=== PATIENT | female | born 1955 | race Caucasian/White ===

== ENCOUNTER 2025-05-23 10:20 | Emergency (ER) | payer MEDICARE, OTHER, SELFPAY ==
[2025-05-23 10:22] VITALS: BP 153/86
[2025-05-23 10:54] LABS: % Eosinophils 3.1 % (0-6); % Immature Granulocytes 0.3 % (0-0.5); % Lymphocytes 17.7 % (20.5-51.1); % Monocytes 9.9 % (1.7-9.3); Absolute Basophils 0.1 10^3/uL (0-0.2); Absolute Eosinophils 0.3 10^3/uL (0-0.7); Absolute Lymphocytes 1.8 10^3/uL (1.2-3.4); Absolute Neutrophils 7.1 10^3/uL (1.4-6.5); Hematocrit 36.9 % (37.0-47.0); Hemoglobin 11.7 g/dL (12.0-16.0); Mean Corp Hgb Conc. 31.7 g/dL (33.0-37.0); Mean Corpuscular Hgb 26.3 pg (27.0-31.0); Mean Corpuscular Volume 82.9 fL (81.0-99.0); Mean Platelet Volume 8.9 fL (7.4-10.4); Nucleated Red Blood Cells % 0 %; Platelet Count 451 10^3/uL (130-400); Red Blood Cell Count 4.45 10^6/uL (4.20-5.40); Red Cell Dist. Width 20.9 % (11.5-14.5); White Blood Cell Count 10.4 10^3/uL (4.8-10.8)
[2025-05-23 11:02] LABS: ALT (SGPT) 27 U/L (0-35); AST (SGOT) 34 U/L (14-36); Albumin 3.9 g/dl (3.5-5.0); Alkaline Phosphatase 119 U/L (38-126); Blood Urea Nitrogen 17 mg/dl (7-17); Calcium 9.4 mg/dl (8.4-10.2); Carbon Dioxide 24 mmol/L (22-30); Chloride 109 mmol/L (98-107); Glucose 105 mg/dl (70-99); Potassium 5.3 mmol/L (3.5-5.1); Sodium 138 mmol/L (135-145); Total Bilirubin 0.7 mg/dl (0.2-1.3); Total Protein 6.6 g/dl (6.3-8.2); eGFR > 60.00
--- NOTE | 2025-05-23 11:38 | ED.GENMED ---
History of Present Illness
General
Chief Complaint: Skin Problem
Source: patient
Exam Limitations: none
Time Seen by Provider: 05/23/25 11:28
Nursing documentation reviewed up to this point in time: agreed with
History of Present Illness
History of Present Illness:
Patient is a 70-year-old female presents to the ER for evaluation. Patient reports she fell on her knee May 05 and since then has a progressive swelling bruising to right lower leg. She was seen by her family doctor and has been being treated for
cellulitis. She is on day 5 of Keflex. She is on Eliquis. She does complain of soreness to the area but was concerned about the swelling. She is able to walk and bear weight. She denies any numbness tingling to lower extremity/foot/toes.
Past History
Past History
ED Past Medical History: HTN and Other (Peptic ulcer)
ED Past Surgical History: Other (recent ERCP)
Social History
Living: with family
Review of Systems
Review of Systems
Allergies reviewed?: Yes
Other source history: family
All Other Systems: ROS reviewed and negative except as documented in HPI and ROS
Phy Exam
General Physical Exam
General Presentation: no apparent distress
General age: appears stated age
General Skin: warm and dry
General Habitus: normal
General Mental: alert
General Hydration: appears well hydrated
Neurological Exam
Neurological Exam: alert and oriented x3
Musculoskeletal Exam
Musculoskeletal Exam: other (Right lower extremity with obvious hematoma and ecchymosis to right anterior lateral lower leg compartments are soft strong distal pulses)
Skin Exam
Skin Exam: normal color and warm/dry
Psychiatric Exam
Psychiatric Exam: normal mood/affect
Course
Orders/Labs/Results
Orders:
Orders
05/23/25 10:37
Complete Blood Count/With Diff Urgent
Comprehensive Metabolic Panel Urgent
Blood Culture Urgent
JEISON Source: Blood/Venous
Specimen Description:
05/23/25 12:04
Venous Doppler Lwr Ext Rt [US Periph Venous LOWER Ext RT] Urgent
Comment:
Reason For Exam: swelling hematoma s/p trauma
Abnormal Lab Results
05/23/25
10:37
Hgb 11.7 L g/dL
(12.0-16.0)
Hct 36.9 L %
(37.0-47.0)
MCH 26.3 L pg
(27.0-31.0)
MCHC 31.7 L g/dL
(33.0-37.0)
RDW 20.9 H %
(11.5-14.5)
Plt Count 451 H 10^3/uL
(130-400)
Absolute Neuts (auto) 7.1 H 10^3/uL
(1.4-6.5)
Absolute Monos (auto) 1.0 H 10^3/uL
(0.1-0.6)
Lymphocytes % 17.7 L %
(20.5-51.1)
Monocytes % 9.9 H %
(1.7-9.3)
Potassium 5.3 H mmol/L
(3.5-5.1)
Chloride 109 H mmol/L
(98-107)
Glucose 105 H mg/dl
(70-99)
05/23/25 10:37
05/23/25 10:37
Vital Signs
Initial and Last Documented VS:
Initial Vital Signs
Temp Pulse Resp BP Pulse Ox
97.8 F 92 20 153/86 98
05/23/25 10:22 05/23/25 10:22 05/23/25 10:22 05/23/25 10:22 05/23/25 10:22
Last Documented Vital Signs
Temp Pulse Resp BP Pulse Ox
97.8 F 87 20 157/91 98
05/23/25 10:22 05/23/25 14:07 05/23/25 10:22 05/23/25 14:07 05/23/25 14:07
MDM/Problems Addressed
Differential Diagnosis Includes:
Not limited to hematoma contusion less likely DVT less likely cellulitis less likely compartment syndrome
MDM/Problems Addressed:
Symptoms are consistent with hematoma on exam patient is on Eliquis no evidence of infection patient denies any fevers is afebrile normal white count has been on Keflex however exam and clinical findings were consistent with hematoma no concerning
symptoms consistent with compartment syndrome.
Patient has been using ice and has not been using any compression.
Discussed with patient we will can switch to warm moist compresses/heat will use compression throughout the day with ambulation discussed the importance of increasing elevation and close outpatient follow-up.
Chronic conditions affecting care:
On Eliquis for history of PE
*Radiology
Radiology exam reviewed: radiology read reviewed
*Pulse Oximetry
SaO2: 98
Oxygen Mode of Delivery: Room air
Patient hypoxic: no
*Critical Care Note
Total Time (30-74mins, 75-104mins- exclusive of procedures): Not Applicable
ED Attending Note
-
Portions of this chart may have been created with voice recognition software.� Occasional wrong word or��sound alike� substitutions may have occurred due to the inherent limitations of voice recognition software.
Discharge Plan
Departure
Patient Disposition: Home (Routine Discharge)
Date of Disposition: 05/23/25
Time of Disposition: 15:10
Patient with high blood pressure during this ER visit?: Yes
Condition: Fair
Covid-19: Not Applicable
Discharge Problem:
Hematoma
Instructions: Hematoma
Prescriptions:
No Action
anastrozole 1 mg Tablet
1 mg PO DAILY
cetirizine 10 mg Tablet
10 mg PO HS
cephalexin 250 mg Capsule
250 mg PO .SEE BELOW
Patient Comments:
05/23/2025, pt. normally takes 1 capsule HS but since starting the new dose of Cephalexin, she has placed this on hold for 6 days until she completes the new one.
aspirin 81 mg Tablet,Delayed Release (Dr/Ec)
81 mg PO DAILY
acetaminophen [Tylenol Extra Strength] 500 mg Tablet
1,000 mg PO QID
cephalexin 500 mg Capsule
500 mg PO QID
Patient Comments:
05/23/2025, filled on 05/19/2025 and instructed to take 1 capsule QID for 7 days.
pantoprazole 40 mg Tablet,Delayed Release (Dr/Ec)
40 mg PO DAILY
docusate sodium 100 mg Capsule
100 mg PO HS
furosemide 20 mg Tablet
20 mg PO DAILY
bupropion HCl 150 mg Tablet Extended Release 24 Hr
150 mg PO DAILY
Multivitamin Women 50 Plus 8 mg iron-400 mcg-50 mcg Tablet
1 tab PO DAILY
Eliquis 5 mg Tablet
5 mg PO BID
Zepbound 15 mg/0.5 mL Pen Injector
15 mg SC FR
cranberry
1 tab PO DAILY
rosuvastatin 20 mg Tablet
20 mg PO HS
Referrals:
Paul Pringle MD [Family Provider, Surgical]
Activity Restrictions/Additional Instructions:
As discussed continue to keep elevated as much as possible. Stop using ice and switch to warm moist heat several times a day. Wear Bib wrap/compression stocking for support throughout the day however remove at night while sleeping. Please closely
follow-up with your family doctor in the next 2 to 3 days for reevaluation.
return if any worsening of symptoms.
Interventions
Interventions:
*Risk Screen - Suicide Last Done: 05/23/25 11:41
*General Assessment Last Done: 05/23/25 11:41
*Neglect/Abuse Screening Last Done: 05/23/25 11:41
*ED- Fall Risk Assessment Last Done: 05/23/25 11:41
*Nursing Disposition Last Done: 05/23/25 15:25
ED-Musculoskeletal Assessment Last Done: 05/23/25 11:41
ED-Skin Assessment Last Done: 05/23/25 11:41
Discharge Date and Time
Discharge Date/Time: 05/23/25 15:26
Print Language: [place] CITIZ[place]
[2025-05-23 11:41] VITALS: BMI 37.1
--- NOTE | 2025-05-23 11:54 | PHANOTE ---
Addendum entered by Anton Mensah 05/23/25 12:10:
05/23/2025, after speaking with pt. again, I was able to confirm with her that she is taking Rosuvastatin 20 mg HS.
Original Note:
05/23/2025, pt. states to be taking Rosuvastatin 40 mg HS; however, this med. is not in their pharmacy records; I called pt.'s [facility] on [address] in [place] ([phone]) and they do not have it on file either; [facility] records are
outdated; could not confirm it.
[2025-05-23 14:07] VITALS: BP 157/91
== END 2025-05-23 15:26 | disposition home or self-care (01) ==
LOC: EMR 10:20
PROVIDERS: Emergency Medicine; EMERGENCY PHYSICIAN Emergency Medicine; FAMILY PHYSICIAN Family Medicine
DX: S80.11XA Contusion of right lower leg, initial encounter (principal); W19.XXXA Unspecified fall, initial encounter; I10 Essential (primary) hypertension; Z87.11 Personal history of peptic ulcer disease; Z86.711 Personal history of pulmonary embolism; Z79.01 Long term (current) use of anticoagulants
CPT/HCPCS: 99284; 80053; 85025; 87040; 93971